=== PATIENT | female | born 1950 | race Caucasian/White ===

== ENCOUNTER 2019-07-26 11:20 | Emergency (ER) | payer OTHER, MEDICARE ==
[2019-07-26] MEDS ORDERED: ASPIRIN 325 MG TABLET ONE (11:30)
[2019-07-26] MEDS ORDERED: NITROGLYCERIN 0.4 MG SL TAB SL ONE (11:31)
[2019-07-26 11:42] LABS: BASOPHILS % (AUTO) 0.8 % (0.0-5.0); HEMATOCRIT 39.6 % (36-48); MEAN CORPUSCULAR HEMOGLOBIN 31.3 pg (27.0-33.0); MEAN CORPUSCULAR HGB CONC 34.1 g/dL (32.0-36.0); MEAN CORPUSCULAR VOLUME 91.8 fL (79-99); MONOCYTES % (AUTO) 9.4 % (3.0-13.0); NEUTROPHILS % (AUTO) 57.8 % (40.0-77.0); PLATELET COUNT (AUTO) 277 K/uL (130-400); RED BLOOD CELL COUNT(AUTO) 4.32 MIL/uL (4.00-5.50); WHITE BLOOD COUNT (AUTO) 4.6 K/uL (4.8-10.8)
[2019-07-26 11:53] LABS: CREATININE 0.7 mg/dL (0.5-1.5)
[2019-07-26 12:00] LABS: INR 0.92 (0.85-1.15); PARTIAL THROMBOPLASTIN TIME 25.4 SEC (26.3-35.5); PROTHROMBIN TIME 9.7 SEC (9.6-11.6)
[2019-07-26 12:01] LABS: ALBUMIN 3.8 g/dL (3.5-5.0); BILIRUBIN,TOTAL 0.5 mg/dL (0.2-1.0); TOTAL PROTEIN, SERUM 6.9 g/dL (6.0-8.3)
== END 2019-07-26 15:57 | disposition home or self-care (01) ==
LOC: EDH 11:20
DX: R07.89 Other chest pain (principal); R20.2 Paresthesia of skin; Z90.710 Acquired absence of both cervix and uterus; Z90.49 Acquired absence of other specified parts of digestive tract
CPT/HCPCS: 36415; 70450; 71045; 72125; 80053; 82550; 84484; 85025; 85378; 85610; 85730; 93005